=== PATIENT | female | born 1950 | race Caucasian/White ===

== ENCOUNTER → 2022-01-28 | Outpatient (CLI) | payer BC ==
[2022-01-28 16:20] LABS: BASOPHILS ABSOLUTE AUTO 0.07 K/mm3 (0.00-0.23); BASOPHILS PERCENT AUTO 1 % (0-2); EOSINOPHILS ABSOLUTE AUTO 0.15 K/mm3 (0.00-0.68); EOSINOPHILS PERCENT AUTO 2 % (0-6); Hematocrit 48.8 % (33.0-51.0); Hemoglobin 15.7 g/dL (11.5-16.0); IMMATURE GRAN ABSOLUTE AUTO 0.06 K/mm3 (0.00-0.10); IMMATURE GRAN PERCENT AUTO 1 % (0-1); LYMPHOCYTES ABSOLUTE AUTO 1.82 K/mm3 (0.84-5.20); LYMPHOCYTES PERCENT AUTO 25 % (21-46); MONOCYTES ABSOLUTE AUTO 0.58 K/mm3 (0.16-1.47); MONOCYTES PERCENT AUTO 8 % (4-13); Mean Corpuscular HGB 31.4 pg (26.0-34.0); Mean Corpuscular HGB Conc 32.2 g/dL (31.5-36.5); Mean Corpuscular Volume 98 fL (80-100); Mean Platelet Volume 10.4 fL (9.1-12.4); NEUTROPHILS ABSOLUTE AUTO 4.48 K/mm3 (1.96-9.15); NEUTROPHILS PERCENT AUTO 63 % (41-73); Platelet Count 290 K/mm3 (150-400); RDW Coefficient Variation 13.1 % (11.7-14.2); RDW Standard Deviation 46.9 fL (35.1-46.3); White Blood Cell Count 7.16 K/mm3 (4.00-11.30)
[2022-01-28 17:07] LABS: Alanine Aminotransfer (ALT/SGP 21 U/L (12-78); Albumin, Blood 4.1 g/dL (3.4-5.0); Albumin/Globulin Ratio 1.2 (0.8-1.8); Alk Phos 90 U/L (50-136); Anion Gap 4 mmol/L (6-16); Aspartate Aminotrans (AST/SGOT 16 U/L (12-37); Bilirubin, Total 0.4 mg/dL (0.1-1.0); Blood Urea Nitrogen 9 mg/dL (8-24); Bun/Creatinine Ratio 11.5 (12.0-20.0); CHOL/HDL RATIO 2.3; CO2, Blood 30 mmol/L (21-32); Calcium, Blood 9.3 mg/dL (8.5-10.1); Chloride, Blood 106 mmol/L (98-108); Cholesterol 228 mg/dL (50-200); Creatinine, Blood 0.78 mg/dL (0.40-1.00); Globulin, Blood 3.5 g/dL (2.2-4.0); Glomerular Filtration Rate >60 (60-); Glucose, Blood 116 mg/dL (70-99); HDL Cholesterol 100 mg/dL (>39); LDL/HDL RATIO 1.1; Low Density Lipoprotein Chol 107 mg/dL (0-110); Potassium, Blood 4.3 mmol/L (3.5-5.5); Sodium, Blood 140 mmol/L (136-145); Total Protein, Blood 7.6 g/dL (6.4-8.2); Triglycerides 107 mg/dL (30-160); Very Low Density Lipoprot Chol 21 mg/dL (6-32)
== END | disposition home or self-care (01) ==
LOC: LAB 14:20 → LAB SHORT 14:20
PROVIDERS: Hospitalist
DX: I10 Essential (primary) hypertension (principal)
CPT/HCPCS: 80053; 80061; 84443; 85025

== ENCOUNTER → 2024-07-21 | Outpatient (CLI) | payer BC ==
[~2024-07-21] MED LIST: ALBU90OI INH; ALBUTEROL; AMOCLA875 PO; AZIT250 PO; Acetaminophen650 M1 PO; ESOM20 PO; GUAI600T33 PO; LOSA25 PO; TRELEGY ELLIPT1 EAC1 IH; VISBIOME 112.51 EACH PO
== END ==
LOC: LAB SHORT 09:40 → LAB 09:40
DX: N30.00 Acute cystitis without hematuria (principal)
CPT/HCPCS: 87077; 87086; 87186

== ENCOUNTER 2024-07-31 10:41 | Inpatient (IN) | payer MEDICARE, BC ==
[~2024-07-31] VITALS: Ht 162.6 cm; Wt 69.6 kg
[2024-07-31 11:14] LABS: BASOPHILS ABSOLUTE AUTO 0.09 K/mm3 (0.00-0.23); BASOPHILS PERCENT AUTO 0 % (0-2); EOSINOPHILS ABSOLUTE AUTO 0.02 K/mm3 (0.00-0.68); EOSINOPHILS PERCENT AUTO 0 % (0-6); Hematocrit 41.3 % (33.0-51.0); IMMATURE GRAN ABSOLUTE AUTO 0.17 K/mm3 (0.00-0.10); IMMATURE GRAN PERCENT AUTO 1 % (0-1); LYMPHOCYTES PERCENT AUTO 3 % (21-46); MONOCYTES ABSOLUTE AUTO 1.11 K/mm3 (0.16-1.47); MONOCYTES PERCENT AUTO 5 % (4-13); Mean Corpuscular HGB Conc 33.9 g/dL (31.5-36.5); Mean Corpuscular Volume 89 fL (80-100); NEUTROPHILS ABSOLUTE AUTO 19.48 K/mm3 (1.96-9.15); NEUTROPHILS PERCENT AUTO 91 % (41-73); Platelet Count 473 K/mm3 (150-400); RDW Coefficient Variation 12.9 % (11.7-14.2); RDW Standard Deviation 41.5 fL (35.1-46.3); Red Blood Cell Count 4.66 M/mm3 (3.80-5.20); White Blood Cell Count 21.47 K/mm3 (4.00-11.30)
[2024-07-31 11:32] LABS: Albumin, Blood 3.1 g/dL (3.4-5.0); Albumin/Globulin Ratio 0.7 (0.8-1.8); Bilirubin, Total 0.6 mg/dL (0.1-1.0); Bun/Creatinine Ratio 10.3 (12.0-20.0); Calcium, Blood 9.2 mg/dL (8.5-10.1); Creatinine, Blood 0.68 mg/dL (0.40-1.00); Globulin, Blood 4.6 g/dL (2.2-4.0); Total Protein, Blood 7.7 g/dL (6.4-8.2)
[2024-07-31] MEDS ORDERED: Ipratropium/Albuterol SulF 2.5-0.5MG/3 ML Amp INH ONE (11:35)
[2024-07-31] MEDS ORDERED: NS 1,000 ML IV SCH ×2 (11:35→14:40)
[2024-07-31] MEDS ORDERED: ALBUTEROL (11:50)
[2024-07-31] MEDS ORDERED: LOSA25 PO (11:51)
[2024-07-31] MEDS ORDERED: TRELEGY ELLIPT1 EAC1 IH (11:51)
[2024-07-31 12:25] LABS: Influenza A, PCR NEGATIVE (NEGATIVE); Influenza B, PCR NEGATIVE (NEGATIVE); Resp Syncytial Virus, PCR NEGATIVE (NEGATIVE); SARS-Cov-2 (COVID-19) PCR, MMC NEGATIVE (NEGATIVE)
[2024-07-31] MEDS ORDERED: MethylPREDNISolone Sod Succ 125 MG Vial IV ONE (13:25)
[2024-07-31] MEDS ORDERED: Doxycycline Hyclate 100 MG TAB PO ONE (13:25)
[2024-07-31] MEDS ORDERED: CefTRIAXone Sodium 1,000 MG in NS 50 ML IV ONE (13:30)
[2024-07-31] MEDS ORDERED: Ipratropium/Albuterol SulF 2.5-0.5MG/3 ML Amp INH SCH (14:00)
[2024-07-31] MEDS ORDERED: Acetaminophen 325 MG TABLET PO PRN (14:00)
[2024-07-31] MEDS ORDERED: FLU VACC TS2024-25(6MOS UP)/PF 45 MCG/0.5 ML SYRINGE IM ONE (14:00)
[2024-07-31] MEDS ORDERED: Ondansetron HCl 2 MG / ML 2ML Vial IV PRN (14:00)
[2024-07-31] MEDS ORDERED: Mometasone/Formoterol MDI 100/5 mcg 13 GM INH SCH (15:25)
[2024-07-31] MEDS ORDERED: Tiotropium Bromide 2.5 MCG/ACT MIST INHAL (10 ACT/4 GM) INH SCH (15:25)
[2024-07-31 16:12] VITALS: BP 174/93
[2024-07-31] MEDS ORDERED: Albuterol 2.5 MG/3 ML VIAL INH PRN (18:05)
[2024-07-31 19:34] VITALS: BP 131/79
[2024-07-31] MEDS ORDERED: Lactobacil 2-S.Thermo-Bifido 1 1 Cap PO SCH (21:00)
[2024-07-31] MEDS ORDERED: GuaiFENesin 600 MG TabCR PO SCH (21:00)
[2024-08-01 03:35] VITALS: BP 150/96
[2024-08-01 05:18] LABS: BASOPHILS ABSOLUTE AUTO 0.04 K/mm3 (0.00-0.23); BASOPHILS PERCENT AUTO 0 % (0-2); EOSINOPHILS PERCENT AUTO 0 % (0-6); Hematocrit 40.8 % (33.0-51.0); Hemoglobin 13.9 g/dL (11.5-16.0); IMMATURE GRAN ABSOLUTE AUTO 0.14 K/mm3 (0.00-0.10); IMMATURE GRAN PERCENT AUTO 1 % (0-1); LYMPHOCYTES ABSOLUTE AUTO 0.56 K/mm3 (0.84-5.20); LYMPHOCYTES PERCENT AUTO 3 % (21-46); MONOCYTES ABSOLUTE AUTO 0.37 K/mm3 (0.16-1.47); MONOCYTES PERCENT AUTO 2 % (4-13); Mean Corpuscular HGB Conc 34.1 g/dL (31.5-36.5); Mean Corpuscular Volume 88 fL (80-100); NEUTROPHILS ABSOLUTE AUTO 15.54 K/mm3 (1.96-9.15); NEUTROPHILS PERCENT AUTO 93 % (41-73); Platelet Count 406 K/mm3 (150-400); RDW Standard Deviation 41.7 fL (35.1-46.3); Red Blood Cell Count 4.64 M/mm3 (3.80-5.20); White Blood Cell Count 16.65 K/mm3 (4.00-11.30)
[2024-08-01 05:35] LABS: Bun/Creatinine Ratio 13.3 (12.0-20.0); Calcium, Blood 9.2 mg/dL (8.5-10.1); Creatinine, Blood 0.6 mg/dL (0.40-1.00); Potassium, Blood 3.8 mmol/L (3.5-5.5)
--- NOTE | 2024-08-01 06:14 | NUR ---
SHIFT SUMMARY NOC PT A/O X 4. PLEASANT AND COOPERATIVE WITH CARE. VSS. NO ACUTE CHANGES TO REPORT. PT STILL ON O2 2L/NC, SPO2 >92%. WBC AND SODIUM HAVE IMPROVED FROM YESTERDAY. PT CURRENTLY RESTING WITH BED IN LOWEST POSITION, AND CALL LIGHT WITHIN REACH.
[2024-08-01 07:23] VITALS: BP 180/102
[2024-08-01] MEDS ORDERED: Losartan Potassium 25 MG Tab PO SCH (09:00)
[2024-08-01] MEDS ORDERED: Enoxaparin 40 MG/0.4 ML SYR SC SCH (09:00)
[2024-08-01] MEDS ORDERED: CefTRIAXone Sodium 1,000 MG in NS 100 ML IV SCH (09:00)
[2024-08-01] MEDS ORDERED: Azithromycin 500 MG in NS 250 ML IV SCH (09:00)
[2024-08-01] MEDS ORDERED: Pantoprazole Sodium 20 MG Tab PO SCH (10:00)
[2024-08-01 15:30] VITALS: BP 153/89
--- NOTE | 2024-08-01 16:30 | NUR ---
SHIFT SUMMARY; PATIENT REMAINS HYPERTENSIVE DURING DAY, [facility] DOES NOT MEET CRITERIA FOR MEDICATING. SHE IS AO X 4. DENIES CHEST PAIN OR PRESSURE. REMAINS INCREASED SOB WITH EXERTION. PRN NEB PROVIDED DURING DAY. SHE USES HER PICKLE DURING DAY WITH GOOD RESULTS. IS STILL UNABLE TO PROVIDE A SPUTUM SAMPLE. HER LUNGS HAVE CRACKLES IN THE BASES AND WHEEZES NOTED ON INSPIRATION ON RIGHT SIDE. SHE IS NOT FEBRILE. PER MD IF NO ACUTE CHANGES IN CONDITION SHE WILL DC HOME TOMORROW AFTER HOME O2 EVAL.
[2024-08-01 20:48] VITALS: BP 145/87
[2024-08-02 04:41] LABS: BASOPHILS ABSOLUTE AUTO 0.04 K/mm3 (0.00-0.23); BASOPHILS PERCENT AUTO 0 % (0-2); EOSINOPHILS ABSOLUTE AUTO 0.06 K/mm3 (0.00-0.68); EOSINOPHILS PERCENT AUTO 1 % (0-6); Hematocrit 36.9 % (33.0-51.0); IMMATURE GRAN ABSOLUTE AUTO 0.12 K/mm3 (0.00-0.10); IMMATURE GRAN PERCENT AUTO 1 % (0-1); LYMPHOCYTES ABSOLUTE AUTO 1.33 K/mm3 (0.84-5.20); LYMPHOCYTES PERCENT AUTO 10 % (21-46); MONOCYTES ABSOLUTE AUTO 0.83 K/mm3 (0.16-1.47); MONOCYTES PERCENT AUTO 6 % (4-13); Mean Corpuscular HGB 29.9 pg (26.0-34.0); Mean Corpuscular HGB Conc 32.5 g/dL (31.5-36.5); Mean Corpuscular Volume 92 fL (80-100); Mean Platelet Volume 8.8 fL (9.1-12.4); NEUTROPHILS ABSOLUTE AUTO 10.93 K/mm3 (1.96-9.15); NEUTROPHILS PERCENT AUTO 82 % (41-73); Platelet Count 385 K/mm3 (150-400); RDW Coefficient Variation 13.2 % (11.7-14.2); RDW Standard Deviation 44.4 fL (35.1-46.3); Red Blood Cell Count 4.02 M/mm3 (3.80-5.20); White Blood Cell Count 13.31 K/mm3 (4.00-11.30)
[2024-08-02 04:42] VITALS: BP 136/84
[2024-08-02 05:03] LABS: Bun/Creatinine Ratio 12.8 (12.0-20.0); Calcium, Blood 9.2 mg/dL (8.5-10.1); Creatinine, Blood 0.78 mg/dL (0.40-1.00); Potassium, Blood 3.6 mmol/L (3.5-5.5)
--- NOTE | 2024-08-02 05:14 | NUR ---
SHIFT SUMMARY NOC PT A/O X 4. PLEASANT AND COOPERATIVE WITH CARE. VSS. NO ACUTE CHANGES TO REPORT. STILL ON 2L/NC. PT HAS HOME O2 EVALUATION TODAY BEFORE PT DISCHARGES BACK HOME POSSIBLY TODAY. PT CURRENTLY RESTING WITH BED IN LOWEST POSITION, AND CALL LIGHT WITHIN REACH.
[2024-08-02 07:23] VITALS: BP 148/84
--- NOTE | 2024-08-02 08:32 | NUR ---
Gave this nursing unit manager consent verbal to participate in treatment.
[2024-08-02] MEDS ORDERED: NS 250 ML IV PRN (08:40)
[2024-08-02] MEDS ORDERED: ALBU90OI INH (12:27)
[2024-08-02] MEDS ORDERED: Acetaminophen650 M1 PO (12:28)
[2024-08-02] MEDS ORDERED: GUAI600T33 PO (12:28)
[2024-08-02] MEDS ORDERED: VISBIOME 112.51 EACH PO (12:28)
[2024-08-02] MEDS ORDERED: AZIT250 PO (12:29)
[2024-08-02] MEDS ORDERED: AMOCLA875 PO (12:29)
[2024-08-02] MEDS ORDERED: ESOM20 PO (12:30)
--- NOTE | 2024-08-02 14:57 | NUR ---
PT AWAKE DURING SHIFT REPORT. A&O, PLEASANT AND CO-OP WITH CARE; WANTING TO D/C TO HOME TODAY. UP INDEPENDENTLY IN AND TO [facility]. DR MOREJON IN TO SEE PT; OK TO D/C TO HOME. PT ON 1L O2 WITH BIOX AT 97%; NO LONGER NEEDING O2 AT REST. HOME O2 EVAL DONE FOR D/C. PT NEEDING 2L O2 FOR EXERTION. MAINTENANCE REPRESENTATIVE NOTIFIED. O2 ORDERED. MEDS FAXED TO [facility] IN [place], PER PT REQUEST. D/C INSTRUCTIONS REVIEWED WITH PT AND ; VERBALIZED UNDERSTANDING. PT ASSISTED OUT TO HUSBANDS CAR VIA W/C WITH ALL BELONGINGS.
== END 2024-08-02 13:58 | disposition home or self-care (01) | DRG 871 ==
LOC: ER 10:41 → MEDS 13:56
PROVIDERS: Internal Medicine; Physician Assistant; Student in an Organized Health Care Education/Training Program; ADMIT Internal Medicine
DX: A41.9 Sepsis, unspecified organism (principal); J18.9 Pneumonia, unspecified organism; J96.01 Acute respiratory failure with hypoxia; E87.1 Hypo-osmolality and hyponatremia; E87.20 Acidosis, unspecified; J44.0 Chronic obstructive pulmonary disease with (acute) lower respiratory infection; R65.20 Severe sepsis without septic shock; I35.0 Nonrheumatic aortic (valve) stenosis; J43.9 Emphysema, unspecified; Z86.73 Personal history of transient ischemic attack (TIA), and cerebral infarction without residual deficits; Z87.891 Personal history of nicotine dependence; K21.9 Gastro-esophageal reflux disease without esophagitis; Z90.710 Acquired absence of both cervix and uterus; Z98.890 Other specified postprocedural states; Z79.899 Other long term (current) drug therapy; Z99.81 Dependence on supplemental oxygen; I71.40 Abdominal aortic aneurysm, without rupture, unspecified
CPT/HCPCS: 0241U; 36415; 71046; 76775; 80048; 80053; 83605; 83880; 84145; 85025; 87040; 93005; 93010; 94640; 94664; 94760; 94761; 96360; 99285-25; A9270; J0456; J0696; J1650; J2405; J2470; J2919; J7030; J7050

== ENCOUNTER 2024-09-20 09:33 | Day surgery (SDC) | payer BC ==
[2024-09-20] VITALS (7 sets, daily range): BP systolic 99–131; BP diastolic 69–88
[~2024-09-20] VITALS: Ht 162.6 cm; Wt 73.9 kg
[2024-09-20] MEDS ORDERED: GUAI600T33 PO (09:57)
[2024-09-20] MEDS ORDERED: Aspirin 325 MG Tab ONE (10:16)
[2024-09-20] MEDS ORDERED: Verapamil HCL 2.5 MG/ML 2ML Injection ONE (10:23)
[2024-09-20] MEDS ORDERED: Heparin Sodium 1000 Units/ML 10ML MDV ONE (10:23)
[2024-09-20] MEDS ORDERED: NS 250 ML IV ONE (10:23)
[2024-09-20] MEDS ORDERED: Nitroglycerin 2 MG/20 ML BTL ONE (10:23)
[2024-09-20] MEDS ORDERED: NS 1,000 ML IV ONE ×2 (10:23→10:31)
[2024-09-20] MEDS ORDERED: Midazolam HCl 1MG / ML 2ML Vial ONE (10:31)
[2024-09-20] MEDS ORDERED: FentaNYL Citrate 50 MCG/ML 2 ML Injection ONE (10:31)
--- NOTE | 2024-09-20 12:07 | NUR ---
PT RETURNS FROM LAB ALERT AND ORIENTED. SITTING UP IN RECLINER. PT. HAS TR BAND TO RIGHT RADIAL SITE WITH 11CC OF AIR. IN BAND. SMALL HEMATOMA NOTED ABOVE BAND, PRESSURE DRESSING APPLIED, DISTAL CAP REFILL WNL, PT VSS UPON RETURN. LUNCH TRAY PROVDIED. PT FAMILY CALLED TO UPDATE.
--- NOTE | 2024-09-20 13:06 | NUR ---
tr band deflation intitated. pt. site remains wnl, unchanged from previous assessment. pressure dressing removed to assess area, small hematoma but it has not changed.
[2024-09-20] MEDS ORDERED: ASPI81CH PO (13:11)
[2024-09-20] MEDS ORDERED: TOPROL XL25 MG PO (13:12)
[2024-09-20] MEDS ORDERED: ATOR20 PO (13:12)
--- NOTE | 2024-09-20 13:30 | NUR ---
tR BAND DEFLATED W/O COMPLICATION. PT CONTINUES WITH SMALL HEMATOMA ABOVE TR BAND BUT HAS NOT CHANGED. PT. DISCHARGE INSTRUCTIONS REVIEWED INDETAIL. PT. MEDICATIONS CALLED TO [facility] PER PT. REQUEST. IV REMOVED CATHETER INTACT. PT. ABLE TO GET SELF DRESSED. TR BAND REMOVED SMALL HEMATOMA BUT NO SWELLING OR OOZING FROM SITE. BANDAGE PLACED. ARM BOARD PLACED AN SLING PROVIDED. PT TAKEN WITH ALL BELONGINGS TO EXIT, PT TO DRIVE PT HOME
== END 2024-09-20 15:00 | disposition home or self-care (01) ==
LOC: MHTC 09:33
DX: I25.10 Atherosclerotic heart disease of native coronary artery without angina pectoris (principal); I35.0 Nonrheumatic aortic (valve) stenosis; J43.1 Panlobular emphysema; I10 Essential (primary) hypertension; E78.00 Pure hypercholesterolemia, unspecified; Z79.899 Other long term (current) drug therapy; Z90.710 Acquired absence of both cervix and uterus; Z86.73 Personal history of transient ischemic attack (TIA), and cerebral infarction without residual deficits
CPT/HCPCS: 76937; 85347; 93454; 93571; 99152; 99153; A9270; C1769; C1887; C1894; J1644; J2250; J3010; J7030; J7050; Q9967

== ENCOUNTER → 2025-03-14 | Outpatient (CLI) | payer BC ==
[~2025-03-14] MED LIST changes: +ASPI81CH PO; +ATOR20 PO; +TOPROL XL25 MG PO
== END ==
LOC: LAB SHORT 10:25 → LAB 10:25
DX: N30.01 Acute cystitis with hematuria (principal)
CPT/HCPCS: 87077; 87086; 87186

== ENCOUNTER → 2025-08-02 | Outpatient (CLI) | payer BC ==
[2025-08-02 15:14] LABS: Anion Gap 4.0 mmol/L (3-11); Blood Urea Nitrogen 11.0 mg/dL (8-24); CO2, Blood 31.0 mmol/L (21-32); Calcium, Blood 9.2 mg/dL (8.5-10.1); Chloride, Blood 103.0 mmol/L (98-108); Creatinine, Blood 0.83 mg/dL (0.40-1.00); Glucose, Blood 133.0 mg/dL (70-99); Potassium, Blood 4.1 mmol/L (3.5-5.5); Sodium, Blood 134.0 mmol/L (136-145)
== END ==
LOC: LAB SHORT 13:33 → LAB 13:33
PROVIDERS: Hospitalist
DX: I10 Essential (primary) hypertension (principal)
CPT/HCPCS: 80048